=== PATIENT | male | born 1960 | race African-American/Black ===

== ENCOUNTER → 2017-03-05 | Outpatient (CLI) | payer OTHER ==
[~2017-03-05] MED LIST: CPR500HP PO; IBUP-1050 PO; LORA-741 PO; SYMIN/8045 INH
--- NOTE | 2017-03-05 09:59 | DIAGNOSTIC IMAGING REPORT ---
ABDOMEN ULTRASOUND FOR HERNIA CLINICAL HISTORY: S/P HERNIARAPHEY PAINS R INGUINAL AREA COMPARISON STUDY: Abdomen and pelvis CT 03/10/2014. FINDINGS: Real-time sonographic imaging of the right inguinal region was performed. There are few small inguinal lymph nodes which measure subcentimeter in short axis diameter. A right inguinal mesh is identified. No fluid collections or masses. No evidence for recurrent hernia. IMPRESSION: Right inguinal mesh is identified consistent with the patient's history of prior inguinal herniorrhaphy. No evidence for recurrent hernia. Electronically signed by: Parag Chan M.D. 03/05/2017 9:58 AM Dictated Date/Time: 03/05/2017 9:56 AM
== END | disposition home or self-care (01) ==
LOC: C.ULTR 09:14
PROVIDERS: ATTEND Family Medicine
DX: R10.30 Lower abdominal pain, unspecified (principal); Z98.890 Other specified postprocedural states

== ENCOUNTER 2017-06-03 03:52 | Emergency (ER) | payer OTHER ==
[~2017-06-03] VITALS: Ht 182.9 cm; Wt 73.7 kg
[~2017-06-03 03:52] MED LIST changes: -LORA-741 PO; -SYMIN/8045 INH
[2017-06-03 03:55] VITALS: TEMP 36.4; Ht 182.9 cm; Wt 73.7 kg
[2017-06-03 04:25] LABS: BASO % 0.7 %; BASO ABS # 0.03 K/uL (0-0.2); EOS % 6.5 %; EOS ABS # 0.27 K/uL (0-0.5); HEMATOCRIT 43.7 % (42-52); HEMOGLOBIN 14.7 g/dL (14.0-18.0); IG# 0.01 K/uL (0.00-0.02); LYMPH % 42.9 %; LYMPH ABS # 1.79 K/uL (1.2-3.4); MEAN CELL VOLUME 89.2 fL (80-100); MEAN CORPUSCULAR HGB CONC 33.6 g/dl (32-36); MEAN PLATELET VOLUME 9.2 fL (7.4-10.4); MONO % 6.2 %; MONO ABS # 0.26 K/uL (0.11-0.59); NEUT % 43.5 %; NEUT ABS # 1.81 K/uL (1.4-6.5); PLATELET COUNT 194 K/uL (130-400); RED CELL DISTRIBUTION WIDTH CV 13.1 % (11.5-14.5); RED CELL DISTRIBUTION WIDTH SD 42.3 fL (36.4-46.3); WHITE BLOOD COUNT 4.17 K/uL (4.8-10.8)
[2017-06-03 04:44] LABS: ALBUMIN 3.9 gm/dl (3.4-5.0); CALCIUM 8.9 mg/dl (8.5-10.1); CREATININE 1.22 mg/dl (0.60-1.40)
[2017-06-03 04:49] LABS: CKMB 7.2 ng/ml (0.5-3.6); TOTAL PROTEIN 7.5 gm/dl (6.4-8.2)
[2017-06-03 05:03] VITALS: O2SAT 98
--- NOTE | 2017-06-03 05:38 | EMERGENCY ROOM VISIT NOTE ---
History Report prepared by Ilia: Glenna Holland Under the Supervision of: Dr. Jarrell Norris M.D. First contact with patient: 03:56 Chief Complaint: CHEST PAIN Stated Complaint: CHEST PAIN LEFT SIDE,NUMBNESS IN ARM LAYING DOWN History of Present Illness The patient is a 56 year old male who presents to the Emergency Room with complaints of persistent chest pain episodes that began about a year and a half ago, noting the most recent episode occurred about an hour prior to arrival. He notes that his pain varies in intensity, but never completely goes away. The patient went to see his PCP for his symptoms, who suggested he might have a pinched nerve. He notes that tonight he decided to come to the Emergency Department because he was unable to sleep due to his discomfort being the worst he has ever experienced. The patient reports that he only experiences chest pain when he is laying down. He notes that he feels chest pressure when he inhales, has numbness in his left hand, and some neck pain. Pt denies LOC, headache, fevers, chills, diaphoresis, visual changes, tearing pain radiating to the back, personal history or family history of aneurysm or pulmonary embolism, uncontrolled hypertension, breathing difficulties, leg swelling, coagulation abnormalities, prolonged travel, recent surgery or immobilization, nausea, vomiting, abdominal pain, melena, hematochezia, urinary symptoms, weakness, lymphadenopathy, rash, or other complaints. Source of History: patient Onset: 5 days ago Position: chest Quality: other (chest pain) Timing: worsening Associated Symptoms: + neck pain (some), + numbness (numbness in his left hand) Note: Associated symptoms include: chest pressure when he inhales Review of Systems See HPI for pertinent positives and negatives. A total of ten systems were reviewed and were otherwise negative. Past Medical & Surgical Medical Problems: (1) Abdominal hernia (2) Asthma Family History Heart disease Hypertension Social History Smoking Status: Never Smoker Alcohol Use: none Drug Use: none Marital Status: Housing Status: lives with significant other Occupation Status: employed Current/Historical Medications Scheduled Budesonide/Formoterol Fumarate (Symbicort 80/4.5 Inhaler), 2 PUFFS INH BID Lorazepam (Ativan), 0.5 MG PO HS Allergies Coded Allergies: No Known Allergies (Unverified , NONE, 06/03/17) Physical Exam Vital Signs Date Time Temp Pulse Resp B/P (MAP) Pulse Ox O2 Delivery O2 Flow Rate FiO2 06/03/17 06:07 52 16 114/69 99 Room Air 06/03/17 05:03 98 Room Air 06/03/17 05:03 98 Room Air 06/03/17 05:01 65 18 106/69 99 Room Air 06/03/17 04:20 Room Air 06/03/17 04:12 63 06/03/17 03:55 36.4 65 18 132/88 99 Room Air Physical Exam GENERAL: Awake, alert, well-appearing, in no distress HENT: Normocephalic, atraumatic. Oropharynx unremarkable. EYES: Normal conjunctiva. Sclera non-icteric. NECK: Supple. No nuchal rigidity. FROM. No masses. RESPIRATORY: Clear to auscultation. No wheezes. CARDIAC: Mild left interior chest wall pain. Normal rate. Normal rhythm. No murmurs. No rubs. Extremities warm and well perfused. Pulses equal. No JVD. GI: Soft, non-distended. No tenderness to palpation. No rebound or guarding. No masses. RECTAL: Deferred. MUSCULOSKELETAL: Atraumatic. Chest examination reveals no tenderness. The back is symmetrical on inspection without obvious abnormality. There is no CVA tenderness to palpation. No joint edema. LOWER EXTREMITIES: Calves are equal size bilaterally and non-tender. No edema. No discoloration. NEURO: Normal sensorium. No sensory or motor deficits noted. SKIN: No rash or jaundice noted. Medical Decision & Procedures ER Provider Diagnostic Interpretation: Radiology results as stated below per my review and radiologist interpretation: Chest x-ray. Findings: A chest x-ray was performed and revealed no pneumothorax , effusion, infiltrate, pulmonary edema, free air under the diaphragm, or wide mediastinum. CT CHEST With Contrast: No evidence of pulmonary embolus. Dependent atelectasis. Otherwise, lungs are clear. No pleural effusion or pneumothorax. Heart and pericardium unremarkable. No significant adenopathy. Remote healed fracture of the posterior left ninth rib. Radiologist: Kelby Youssef M.D. Laboratory Results 06/03/17 04:20 Red Blood Count 4.90, Mean Corpuscular Volume 89.2, Mean Corpuscular Hemoglobin 30.0, Mean Corpuscular Hemoglobin Concent 33.6, Mean Platelet Volume 9.2, Neutrophils (%) (Auto) 43.5, Lymphocytes (%) (Auto) 42.9, Monocytes (%) (Auto) 6.2, Eosinophils (%) (Auto) 6.5, Basophils (%) (Auto) 0.7, Neutrophils # (Auto) 1.81, Lymphocytes # (Auto) 1.79, Monocytes # (Auto) 0.26, Eosinophils # (Auto) 0.27, Basophils # (Auto) 0.03 06/03/17 04:20 Test 06/03/17 04:20 06/03/17 04:31 06/03/17 06:27 White Blood Count 4.17 K/uL (4.8-10.8) Red Blood Count 4.90 M/uL (4.7-6.1) Hemoglobin 14.7 g/dL (14.0-18.0) Hematocrit 43.7 % (42-52) Mean Corpuscular Volume 89.2 fL (80-100) Mean Corpuscular Hemoglobin 30.0 pg (25-34) Mean Corpuscular Hemoglobin Concent 33.6 g/dl (32-36) Platelet Count 194 K/uL (130-400) Mean Platelet Volume 9.2 fL (7.4-10.4) Neutrophils (%) (Auto) 43.5 % Lymphocytes (%) (Auto) 42.9 % Monocytes (%) (Auto) 6.2 % Eosinophils (%) (Auto) 6.5 % Basophils (%) (Auto) 0.7 % Neutrophils # (Auto) 1.81 K/uL (1.4-6.5) Lymphocytes # (Auto) 1.79 K/uL (1.2-3.4) Monocytes # (Auto) 0.26 K/uL (0.11-0.59) Eosinophils # (Auto) 0.27 K/uL (0-0.5) Basophils # (Auto) 0.03 K/uL (0-0.2) RDW Standard Deviation 42.3 fL (36.4-46.3) RDW Coefficient of Variation 13.1 % (11.5-14.5) Immature Granulocyte % (Auto) 0.2 % Immature Granulocyte # (Auto) 0.01 K/uL (0.00-0.02) Anion Gap 8.0 mmol/L (3-11) Est Creatinine Clear Calc Drug Dose 70.5 ml/min Estimated GFR () 76.3 Estimated GFR (Non- 65.9 BUN/Creatinine Ratio 13.8 (10-20) Calcium Level 8.9 mg/dl (8.5-10.1) Total Bilirubin 0.5 mg/dl (0.2-1) Direct Bilirubin 0.2 mg/dl (0-0.2) Aspartate Amino Transf (AST/SGOT) 45 U/L (15-37) Alanine Aminotransferase (ALT/SGPT) 40 U/L (12-78) Alkaline Phosphatase 66 U/L (45-117) Total Creatine Kinase 714 U/L (39-308) Creatine Kinase MB 7.2 ng/ml (0.5-3.6) Creatine Kinase MB Ratio 1.0 (0-3.0) Total Protein 7.5 gm/dl (6.4-8.2) Albumin 3.9 gm/dl (3.4-5.0) Lipase 116 U/L (73-393) Bedside D-Dimer > 450 ng/mlFEU (0-450) Bedside Troponin I < 0.030 ng/ml (0-0.045) Laboratory results reviewed by me ECG Per My Interpretation Indication: chest pain Rate (beats per minute): 61 Rhythm: sinus rhythm Findings: PAC, no acute ischemic change, no ectopy ED Course 0352: The patient was evaluated in room B10. A complete history and physical exam was performed. 0620: I reevaluated the patient. Doing well. Repeat troponin performed. 0700: reevaluated patient. He is doing well. Discussed outpatient management and further workup. Discussed results and discharge instructions: he verbalized understanding and agreement. The patient is ready for discharge. Medical Decision Triage Nursing notes reviewed. The patient's presentation and history were concerning for chest pain. Etiologies such as musculoskeletal, cardiac ischemia, aortic dissection, pulmonary embolism, pneumonia, pneumothorax, infections, gastrointestinal, as well as others were entertained. The patient was evaluated. Clinically is doing well. He notes symptoms going on fairly consistently for over a year. He notes that it does not affect his ability to function during the day. 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 He has no exertional chest pain. He notes mostly it occurs at night when laying down. He has had orthopedic referral for his left arm numbness complaints. He also notes having a cardiology referral and stress test performed which was negative. Physical examination did reveal some left chest wall tenderness. He had an unremarkable CBC and chemistry panel. His troponin was negative. His d- dimer was mildly elevated. The patient does not have risk factor for PE by history. A CT scan was performed. His total CK was moderately elevated. A myositis is a possibility although the duration is somewhat unusual. Repeat troponin was negative. CT scan does not show any acute pathology. The exact etiology of his symptoms is not obvious. He does give a good history for a radiculopathy in the C8 dermatome. Musculoskeletal seems like a likely etiology for his chest symptoms. Further evaluation and management in the office will be necessary. By the evaluation outlined above other emergent etiologies such as those listed in the differential, as well as others, were deemed relatively unlikely. The patient was educated about the findings as listed above. All questions were answered and the patient was pleased with the treatment. Return instructions were outlined and the patient was discharged in stable condition. The patient was referred to his primary physician later today for follow-up for a recheck of the current condition. Medication Reconcilliation Current Medication List: was personally reviewed by me Blood Pressure Screening Patient's blood pressure: Normal blood pressure Blood pressure disposition: Did not require urgent referral Impression Primary Impression: Left sided chest pain Additional Impression: Elevated creatine phosphokinase level Scribe Attestation The scribe's documentation has been prepared under my direction and personally reviewed by me in its entirety. I confirm that the note above accurately reflects all work, treatment, procedures, and medical decision making performed by me. Departure Information Dispostion Home / Self-Care Referrals Jamison Randall M.D. (PCP) Forms Call Back Authorization, HOME CARE DOCUMENTATION FORM, IMPORTANT VISIT INFORMATION Patient Instructions [facility] Additional Instructions CHEST PAIN INSTRUCTIONS: Ibuprofen(Motrin, Advil) may be used for fever or pain. Use 600mg every six hours as needed. Take with food. Avoid using more than 2400mg in a 24 hour period. Do not use 2400mg per day for more than three consecutive days without physician direction. Prolonged inappropriate use can lead to stomach upset or ulcers. (AND/OR) Acetaminophen(Tylenol) may be used for fever or pain. Use 1000mg every six hours as needed. Avoid using more than 4000mg in a 24 hour period. Rest and drink plenty of fluids as tolerated. Continue current medications. Avoid strenuous activities and anything that worsens your pain. Resume normal activities once your symptoms resolve. Return to the ER immediately for worsening or persistent chest pain, abdominal pain, vomiting, fevers, chest pains, difficulty breathing, dark coloration of your urine, increased muscle pain, worsening of your condition, or as needed. Follow up with your primary physician in 2-3 days for a recheck of your current condition. Discuss your elevated muscle enzyme level. Repeat testing and evaluation should be performed. Also discussed your arm numbness. Problem Qualifiers
[2017-06-03 07:07] VITALS: BP 127/88; PULSE 59; O2SAT 100
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
--- NOTE | 2017-06-03 08:15 | EMERGENCY ROOM VISIT NOTE ---
ED Visit Note CT report was reviewed by our radiologist showed age-indeterminate PEs within the left segmental branch of the pulmonary artery. Patient was contacted by my charge nurse at 8:10 AM and he agreed to return to the ER. For further evaluation.
[2017-06-03] MEDS ORDERED: SYMIN/8045 INH (11:45)
[2017-06-03] MEDS ORDERED: LORA-741 PO (23:27)
[2017-06-04] MEDS ORDERED: XRL15 PO ×2 (12:07→12:13)
[2017-06-04] MEDS ORDERED: XRL20 PO (12:07)
== END 2017-06-03 07:09 | disposition home or self-care (01) ==
LOC: C.EDB 03:54
DX: R07.9 Chest pain, unspecified (principal); R74.8 Abnormal levels of other serum enzymes; I26.99 Other pulmonary embolism without acute cor pulmonale; R20.0 Anesthesia of skin; J45.909 Unspecified asthma, uncomplicated; Z82.49 Family history of ischemic heart disease and other diseases of the circulatory system

== ENCOUNTER 2017-06-03 08:21 | Observation (INO) | payer OTHER ==
[2017-06-03] VITALS (7 sets, daily range): BP systolic 107–134; BP diastolic 65–94; PULSE 56–62; TEMP 36.8–36.9; O2SAT 99–100; Ht 182.9 cm; Wt 73.9 kg
[~2017-06-03] VITALS: Ht 182.9 cm; Wt 73.9 kg
[2017-06-03 09:15] LABS: BASO % 0.3 %; BASO ABS # 0.01 K/uL (0-0.2); EOS ABS # 0.16 K/uL (0-0.5); HEMOGLOBIN 14.6 g/dL (14.0-18.0); IG# 0.01 K/uL (0.00-0.02); LYMPH % 37.4 %; LYMPH ABS # 1.49 K/uL (1.2-3.4); MEAN CELL VOLUME 87.6 fL (80-100); MEAN CORPUSCULAR HEMOGLOBIN 29.7 pg (25-34); MONO % 7.8 %; MONO ABS # 0.31 K/uL (0.11-0.59); NEUT % 50.2 %; PLATELET COUNT 186 K/uL (130-400); RED CELL DISTRIBUTION WIDTH CV 13.2 % (11.5-14.5); RED CELL DISTRIBUTION WIDTH SD 42.4 fL (36.4-46.3); WHITE BLOOD COUNT 3.98 K/uL (4.8-10.8)
[2017-06-03 09:28] LABS: PTT PATIENT 26.8 SECONDS (21.0-31.0)
[2017-06-03] MEDS ORDERED: SODIUM CHLORIDE 0.9% 1000ML 1,000 ML IV STA (09:41)
--- NOTE | 2017-06-03 10:37 | DIAGNOSTIC IMAGING REPORT ---
ULTRASOUND BILATERAL LOWER EXTREMITY VENOUS CLINICAL HISTORY: Pulmonary embolus. COMPARISON STUDY: No priors. TECHNIQUE: Real-time, grayscale, and color Doppler sonography of the deep veins of the right and left lower extremity was performed from the inguinal crease to the calf. Compression and augmentation were utilized. FINDINGS: There is no sonographic evidence of deep venous thrombosis identified in the right or left lower extremity. The common femoral, superficial femoral, and popliteal veins are patent and normally compressible bilaterally. The greater saphenous vein and the profunda femoris vein at the junction with the common femoral vein are clear in both legs. The visualized calf veins are patent bilaterally. IMPRESSION: There is no sonographic evidence of deep venous thrombosis identified in the right or left lower extremity. Electronically signed by: Nicola Gupta M.D. 06/03/2017 10:36 AM Dictated Date/Time: 06/03/2017 10:35 AM
[2017-06-03] MEDS ORDERED: ASPIRIN 81 MG CHEW PO STA (10:54)
[2017-06-03] MEDS ORDERED: ONDANSETRON INJ 2 MG/ML 2 ML VIAL IV PRN (11:30)
[2017-06-03] MEDS ORDERED: MAGNESIUM HYDROXIDE SUSP 30 ML UDC PO PRN (11:30)
[2017-06-03] MEDS ORDERED: ACETAMINOPHEN 325 MG TAB PO PRN (11:30)
[2017-06-03] MEDS ORDERED: NITROGLYCERIN 0.4 MG SL PER TAB CHARGE SL PRN (11:30)
[2017-06-03] MEDS ORDERED: HEPARIN 25000 UNIT/500 ML D5W ONE (11:36)
[2017-06-03] MEDS ORDERED: HEPARIN SOD (PORCINE) 1000 UNIT/ML 10 ML VIAL ONE (11:36)
[2017-06-03] MEDS ORDERED: SYMIN/8045 INH (11:45)
[2017-06-03] MEDS ORDERED: LORAZEPAM 0.5 MG TAB PO PRN (11:45)
--- NOTE | 2017-06-03 11:47 | History and Physical ---
History & Physical Date & Time of Service: Jun 03, 2017 at 11:31 Chief Complaint: Chest Pain Primary Care Physician: Jamison Randall M.D. History of Present Illness Source: patient 56 y/o M c/o chest pain. Pt has been having chest pain/pressure for about the last week. It is L sided and was initially more of a mild pressure until about 3-4 days ago when it became more intense pressure and he started to have more pain that moves into his L UE. He only has pain to the L UE when he lies down to sleep. It is keeping him up at night. He walks a lot at work and is active during his day and has no chest pain with this. He has no SOB. He does have some chest pressure with deep breathing. He also notes a numbness that stems from the L side of his neck and moves into his L 4th/5th digits, which is more constant and also recently started. This is different from the L UE pain he has been having. Pt came to the ED last night for evaluation due to the increase in his chest and UE pain. A CTA was done that was read as neg by [facility], however upon review today by [facility] radiology it was determined that there is a small L sided PE and pt was called to return to the ED. Pt states he had a more mild version of this chest pain about a year ago. He had a stress test at that time which was neg and his pain resolved. Of note, records show this stress was 06/2014 and was a stress ECHO that was neg. He feels fine otherwise. No palpitations, dizziness, lightheadedness. Pt denies fever, abd pain, n/v/c/d, LE pain or swelling. He has been able to go about his usual work and daily activities without other issues. Past Medical/Surgical History Medical Problems: (1) Abdominal hernia Status: Chronic (2) Asthma Status: Chronic Takes ativan HS for sleep Family History Family history was reviewed; no changes noted. Father had a triple bypass in his late 50s or early 60s Mother with HTN Social History Smoking Status: Never Smoker Alcohol Use: 3 beers/day, no issues if there is no alcohol consumption, no hx of alcohol withdrawal, recent antifungal use and had no alcohol x3 months without issue Drug Use: none Marital Status: Occupational Status: employed Multi-Drug Resistant Organisms History of MDRO: No Allergies Coded Allergies: No Known Allergies (Unverified , NONE, 06/03/17) Home Medications Scheduled Budesonide/Formoterol Fumarate (Symbicort 80/4.5 Inhaler), 2 PUFFS INH BID Lorazepam (Ativan), 0.5 MG PO HS Review of Systems Pertinent positives and negatives reviewed in HPI--all others negative Physical Exam Vital Signs Date Time Temp Pulse Resp B/P (MAP) Pulse Ox O2 Delivery O2 Flow Rate FiO2 06/03/17 11:00 52 126/83 100 Room Air 06/03/17 10:41 55 16 136/86 100 Room Air 06/03/17 09:06 60 16 139/88 99 Room Air 06/03/17 08:37 69 06/03/17 08:28 100 Room Air 06/03/17 08:25 36.3 66 20 150/91 100 Room Air General Appearance: WD/WN, no apparent distress Head: normocephalic, atraumatic Eyes: EOMI, sclerae normal Respiratory/Chest: normal breath sounds, no respiratory distress Cardiovascular: regular rate, rhythm, no edema, normal peripheral pulses Abdomen/GI: non tender, soft Extremities/Musculoskelatal: no calf tenderness, no pedal edema Neurologic/Psych: alert, normal mood/affect, oriented x 3 Skin: normal color, warm/dry Diagnostics Laboratory Results Results Past 24 Hours Test 06/03/17 08:50 06/03/17 09:00 06/03/17 11:22 Range/Units Bedside Prothrombin Time INR 1.0 0.9-1.1 White Blood Count 3.98 4.8-10.8 K/uL Red Blood Count 4.91 4.7-6.1 M/uL Hemoglobin 14.6 14.0-18.0 g/dL Hematocrit 43.0 42-52 % Mean Corpuscular Volume 87.6 80-100 fL Mean Corpuscular Hemoglobin 29.7 25-34 pg Mean Corpuscular Hemoglobin Concent 34.0 32-36 g/dl Platelet Count 186 130-400 K/uL Mean Platelet Volume 9.0 7.4-10.4 fL Neutrophils (%) (Auto) 50.2 % Lymphocytes (%) (Auto) 37.4 % Monocytes (%) (Auto) 7.8 % Eosinophils (%) (Auto) 4.0 % Basophils (%) (Auto) 0.3 % Neutrophils # (Auto) 2.00 1.4-6.5 K/uL Lymphocytes # (Auto) 1.49 1.2-3.4 K/uL Monocytes # (Auto) 0.31 0.11-0.59 K/uL Eosinophils # (Auto) 0.16 0-0.5 K/uL Basophils # (Auto) 0.01 0-0.2 K/uL RDW Standard Deviation 42.4 36.4-46.3 fL RDW Coefficient of Variation 13.2 11.5-14.5 % Immature Granulocyte % (Auto) 0.3 % Immature Granulocyte # (Auto) 0.01 0.00-0.02 K/uL Prothrombin Time 10.8 9.0-12.0 SECONDS Prothromb Time International Ratio 1.0 0.9-1.1 Activated Partial Thromboplast Time 26.8 21.0-31.0 SECONDS Partial Thromboplastin Ratio 1.0 Troponin I < 0.015 0-0.045 ng/ml Diagnostic Radiology CTA: small L PE LE US: neg for DVT b/l Normal EKG Impression Assessment and Plan 56 y/o M who was admitted for observation on 06/03 for chest pain. Chest pain: this is likely pleuritic stemming from the PE noted on CTA and the fact that it is only occurring in certain positions Pt with FH of CAD, will monitor overnight for possible ischemia related to PE Stress ECHO 2014 was WNL, will hold on repeating for now Trop neg x1, serial pending + ddimer in the setting of PE EKG WNL Hypercoag panel drawn prior to heparin Will start on heparin drip for now given possible need for further intervention, however pt would be a good candidate for xarelto depending on insurance coverage Lipid panel pending Asthma: stable, continue home meds Insomnia/anxiety: continue home meds LE UE numbness: if cardiac work-up is neg, likely related to disc herniation and will need further work-up as outpt with PCP Alcohol use: reports 3 beers per night and significant other does not dispute this, no hx of withdrawal with recent 3 month cessation due to antifungal use Monitor Other: Reg diet Heparin drip for DVT proph Level of Care Telemetry VTE Prophylaxis VTE Risk Assessment Done? Y/N: Yes Risk Level: Low
[2017-06-03] MEDS: HEPARIN 25,000 UNIT/500ML D5W 500 ML IV PRN ×2 (12:30→19:47)
[2017-06-03] MEDS ORDERED: IV FLUIDS COMPLETED PRN (14:00)
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
[2017-06-03 18:34] LABS: PTT PATIENT 76.9 SECONDS (21.0-31.0)
[2017-06-03] MEDS: BUDESONIDE/FORMOTEROL FUMARATE 80/4.5 60 PUFFS/INHALER INH SCH (20:39)
[2017-06-03] MEDS ORDERED: LORA-741 PO (23:27)
[2017-06-04 01:14] LABS: PTT PATIENT 63.4 SECONDS (21.0-31.0)
[2017-06-04 03:34] VITALS: BP 91/53; PULSE 55; TEMP 36.7; O2SAT 100
[2017-06-04 05:52] LABS: HEMOGLOBIN 13.5 g/dL (14.0-18.0); MEAN CELL VOLUME 87.5 fL (80-100); MEAN CORPUSCULAR HEMOGLOBIN 29.5 pg (25-34); MEAN CORPUSCULAR HGB CONC 33.8 g/dl (32-36); MEAN PLATELET VOLUME 8.9 fL (7.4-10.4); PLATELET COUNT 175 K/uL (130-400); RED CELL DISTRIBUTION WIDTH CV 13.4 % (11.5-14.5); RED CELL DISTRIBUTION WIDTH SD 42.6 fL (36.4-46.3); WHITE BLOOD COUNT 4.05 K/uL (4.8-10.8)
[2017-06-04 06:32] LABS: PTT PATIENT 64.8 SECONDS (21.0-31.0)
[2017-06-04 07:34] VITALS: BP 127/80; PULSE 59; TEMP 36.6; O2SAT 100
[2017-06-04 08:00] VITALS: O2SAT 100
[2017-06-04] MEDS: BUDESONIDE/FORMOTEROL FUMARATE 80/4.5 60 PUFFS/INHALER INH SCH (08:38)
[2017-06-04] MEDS ORDERED: RIVAROXABAN TAB 15 MG TAB PO SCH (09:00)
--- NOTE | 2017-06-04 10:56 | Medical Student: [facility] ---
Med Student History & Physical Date & Time of Service: Jun 04, 2017 at 10:38 Chief Complaint: Chest Pain Primary Care Physician: Jamison Randall M.D. History of Present Illness Source: patient, hospital records Mr. Colby is a 56-year-old male with a past history of asthma and left-sided C8 radiculopathy who presented to the ED initially on 06/02/17 complaining of left- sided chest pain. He was sent home after a seemingly negative workup but then was contacted by the ED when the report for his chest CTA revealed a left upper lobe PE of a segmental branch. His chest pain started a week ago. Mr. Colby characterized the pain primarily as a sensation of pressure and rated it a 4/10. He reports attempting use of antacids (Mylanta, Tums) with no improvement of symptoms. He states that pain is improved with positional changes (improved while supine, worse while lying on sides). Mr. Colby also reports improvement in his chest pain during the day and worsening at night. His chest pain wakes him up in the middle of the night. However, nothing has provided full relief of his chest pain. The pain is consistently present and improves during the day as he is working and worsens at night. Throughout this week-long episode of chest pain, Karlos denies any shortness of breath, either at rest or with exertion. He denies any history of prior DVT, PE, recent long trips, or immobilizations. He has never been a smoker. He reports a prior history of neck pain and bilateral upper extremity weakness, numbness, and pain for which he underwent an EMG in October 2015. The EMG report shows mild ulnar neuropathies bilaterally and left greater than right C8 radiculopathy. This AM, Mr. Colby reports sleeping well through the night with no interruption from his chest pain and presently complains of some of the same chest pain, but says it is much improved. He has a good appetite and has no problems with voiding. On ROS today, he denied any fever, chills, night sweats, dyspnea, and chest pain. Past Medical/Surgical History Medical Problems: (1) Abdominal hernia Status: Chronic (2) Elevated creatine phosphokinase level Status: Acute (3) Left sided chest pain Status: Acute (4) Pulmonary embolism Status: Acute Family History Father had a CABG x 3 in his early 60s. Mother has HTN. Denies a history of stroke, MS, PE, DVT in his family. Denies any hx of coagulopathies. Father: coronary artery disease Mother: HTN Social History Smoking Status: Never Smoker Alcohol Use: 3 beers/day, no issues if there is no alcohol consumption, no hx of alcohol withdrawal, recent antifungal use and had no alcohol x3 months without issue Drug Use: none Marital Status: Occupational Status: employed (is self-employed and works in construction) Allergies Coded Allergies: No Known Allergies (Unverified , NONE, 06/03/17) Medications Budesonide/Formoterol Fumarate (Symbicort 80/4.5 Inhaler), 2 PUFFS INH BID Lorazepam (Ativan), 0.5 MG PO HS Rivaroxaban (Xarelto), 20 MG PO DAILY Rivaroxaban (Xarelto), 15 MG PO BID Review of Systems Constitutional: No fever, No chills, No sweats Respiratory: No cough, No wheezing, No shortness of breath, No dyspnea on exertion, No dyspnea at rest, No hemoptysis Cardiovascular: No chest pain Abdomen: No pain, No nausea, No vomiting, No diarrhea, No constipation Physical Exam Vital Signs (24 Hours) Date Time Temp Pulse Resp B/P (MAP) Pulse Ox O2 Delivery O2 Flow Rate FiO2 06/04/17 08:00 100 Room Air 06/04/17 07:34 36.6 59 20 127/80 (96) 100 Room Air 06/04/17 04:00 Room Air 06/04/17 03:34 36.7 55 16 91/53 (66) 100 Room Air 06/04/17 00:00 Room Air 06/03/17 23:50 36.8 59 18 107/65 (79) 99 Room Air 06/03/17 20:10 99 Room Air 06/03/17 19:01 36.9 62 15 119/80 (93) 99 Room Air 06/03/17 16:07 36.8 56 16 117/71 (86) 100 Room Air 06/03/17 16:00 99 Room Air 06/03/17 13:30 36.8 57 18 134/94 (107) 99 Room Air 06/03/17 12:58 57 14 113/82 100 06/03/17 12:32 63 16 128/92 99 Room Air 06/03/17 12:26 57 06/03/17 12:06 100 Room Air 06/03/17 11:00 52 126/83 100 Room Air 06/03/17 10:41 55 16 136/86 100 Room Air General Appearance: WD/WN, no apparent distress Head: normocephalic, atraumatic Eyes: normal inspection Neck: supple, no adenopathy, no JVD Respiratory/Chest: chest non-tender, lungs clear, normal breath sounds, no respiratory distress, no accessory muscle use Cardiovascular: regular rate, rhythm, no edema, no gallop, no JVD, no murmur Abdomen/GI: normal bowel sounds, non tender, soft Extremities/Musculoskelatal: normal inspection, no calf tenderness, no pedal edema, non-tender Neurologic/Psych: alert, normal mood/affect, normal reflexes, oriented x 3 Skin: normal color, warm/dry Diagnostics Laboratory Results Results Past 24 Hours Test 06/03/17 12:15 06/03/17 18:03 06/03/17 23:19 06/04/17 00:28 Range/Units Fibrinogen 221 184-400 mg/dl Activated Partial Thromboplast Time 76.9 63.4 21.0-31.0 SECONDS Partial Thromboplastin Ratio 3.0 2.4 Troponin I < 0.015 < 0.015 0-0.045 ng/ml Test 06/04/17 05:28 Range/Units White Blood Count 4.05 4.8-10.8 K/uL Red Blood Count 4.57 4.7-6.1 M/uL Hemoglobin 13.5 14.0-18.0 g/dL Hematocrit 40.0 42-52 % Mean Corpuscular Volume 87.5 80-100 fL Mean Corpuscular Hemoglobin 29.5 25-34 pg Mean Corpuscular Hemoglobin Concent 33.8 32-36 g/dl RDW Standard Deviation 42.6 36.4-46.3 fL RDW Coefficient of Variation 13.4 11.5-14.5 % Platelet Count 175 130-400 K/uL Mean Platelet Volume 8.9 7.4-10.4 fL Activated Partial Thromboplast Time 64.8 21.0-31.0 SECONDS Partial Thromboplastin Ratio 2.5 Triglycerides Level 57 0-150 mg/dl Cholesterol Level 173 0-200 mg/dl HDL Cholesterol 95 mg/dl LDL Cholesterol, Calculated 67 mg/dl VLDL Cholesterol, Calculated 11 mg/dl Cholesterol/HDL Ratio 1.8 Diagnostic Radiology Chest CTA revealed a trace and age-indeterminant pulmonary embolus in a segmental branch in the left upper lobe. CXR normal Normal EKG Impression Assessment and Plan Les is a 56 year old male with a prior history of asthma who presented to the ED on 06/02/17 with a week-long history of worsening chest pain and was sent home the same day after an apparently negative workup. He was asked to return for further evaluation when his chest CTA showed a pulmonary embolus. Pulmonary embolus -based on history of chest pain, CT findings, and elevated D-dimer, Mr. Colby's symptoms were from the PE found in his left lung -initiate anticoagulation for the next six months. 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
[2017-06-04 11:37] VITALS: BP 107/71; PULSE 67; TEMP 36.8; O2SAT 99
[2017-06-04] MEDS ORDERED: XRL15 PO ×2 (12:07→12:13)
[2017-06-04] MEDS ORDERED: XRL20 PO (12:07)
--- NOTE | 2017-06-04 12:12 | Discharge Instructions ---
Discharge Instructions Date of Service Jun 04, 2017. Admission Reason for Admission: Left sided pulmonary embolism Discharge Discharge Diagnosis / Problem: (1) Pulmonary embolism VTE Date & Time Date of VTE Diagnosis: Jun 03, 2017 Time of VTE Diagnosis: 07:11 Discharge Goals Goal(s): Improve function, Improve disease control Activity Recommendations Activity Limitations: resume your previous activity . Instructions / Follow-Up Instructions / Follow-Up Medications: - XARELTO: anticoagulation for pulmonary embolism, take 15mg twice a day for 20 more days and then 20mg daily Pulmonary Embolism: diagnosed on CT of the chest and your d dimer was also elevated to suggest a clot venous doppler of the legs was negative for DVT hypercoagulable lab work was drawn here in the hospital but will take days to come back, Dr. Randall will have those results next week recommend taking Xarelto for 6 months to treat the clot be careful at work as you will be more prone to bleeding and bruising if you injure yourself FOLLOW UP - call for appointment with Dr. Randall next week Medication Instructions: Your condition is typically treated with an anticoagulant. Anticoagulants will thin your blood to help prevent new clots. * You should take her medication exactly as directed. * Never skip a dose. * Never take a double dose. If you miss a dose, take it as soon as you remember. Call your Primary Care doctor if you experience any of the following: * Swelling or Pain in your leg * Sudden, continuous pain deep in a muscle * Pain that worsens when you are active or when you stand still for a long time * Chest Pain * Sudden Shortness of Breath * Rapid or pounding heart beat * Fainting * Dizziness * Cough with blood or bloody sputum * Sweating more than normal * Bruises * Heavy or uncontrolled bleeding * Blood in your urine, stool or vomit * Black or tarry stools Caring for Your Self at Home: * Avoid sitting, standing or lying down for long periods without moving your legs and feet * When traveling by car, stop to get out and move around at least once every 3 hours * On long airplane, train or bus rides, get up and move around when possible * If you can't get up, wiggle your toes and tighten your calves to keep your blood moving Follow Up: It is important for you to keep your follow up appointments with your medical provider. Current Hospital Diet Patient's current hospital diet: Regular Diet Discharge Diet Recommended Diet: Regular Diet Pending Studies Studies pending at discharge: yes List of pending studies: hypercoagulable lab work Laboratory Results Lipid Panel Test 06/04/17 05:28 Range/Units Triglycerides Level 57 0-150 mg/dl Cholesterol Level 173 0-200 mg/dl HDL Cholesterol 95 mg/dl Cholesterol/HDL Ratio 1.8 LDL Cholesterol, Calculated 67 mg/dl Medical Emergencies . Who to Call and When: Medical Emergencies: If at any time you feel your situation is an emergency, please call 911 immediately. . Non-Emergent Contact Non-Emergency issues call your: Primary Care Provider Call Non-Emergent contact if: you have any medication questions . . "Provider Documentation" section prepared by Caden Landa. . VTE Core Measure Inpt VTE Proph given/why not?: Other Anticoagulation (Xarelto) [place] Drug Monitoring Program Search Results: no issues identified
[2017-06-04 12:40] VITALS: BP 107/71; PULSE 67; TEMP 36.8; O2SAT 99
--- NOTE | 2017-06-05 07:52 | Discharge Summary ---
Discharge Summary Date of Service Jun 04, 2017. Discharge Summary Admission Date: Jun 03, 2017 at 11:31 Discharge Date: Jun 04, 2017 Discharge Disposition: Home Principal Diagnosis: Left sided PE Problems/Secondary Diagnoses: Chest pain Procedures: none Consultations: none Medication Reconciliation New Medications: Rivaroxaban (Xarelto) 20 Mg Tab 20 MG PO DAILY for 30 Days, #30 TABS 5 Refills Rivaroxaban (Xarelto) 15 Mg Tab 15 MG PO BID for 21 Days, #42 TAB 0 Refills Continued Medications: Budesonide/Formoterol Fumarate (Symbicort 80/4.5 Inhaler) Aero 2 PUFFS INH BID Lorazepam (Ativan) 0.5 Mg Tab 0.5 MG PO HS Discharge Exam Patient doing well, chest pain resolving, able to take a deep breath, never had dyspnea. Discussed plan for discharge with [facility], co-pay only $3. Review of Systems: Constitutional: No fever, No chills, No sweats, No weight loss, No weakness , No fatigue, No problem reported Eyes: No worsening of vision, No eye pain, No redness, No discharge, No diplopia, No problem reported ENT: No hearing loss, No unusual epistaxis, No nasal symptoms, No sore throat, No tinnitus, No dental problems, No trouble swallowing, No problem reported Respiratory: No cough, No sputum, No wheezing, No shortness of breath, No dyspnea on exertion, No dyspnea at rest, No hemoptysis, No problem reported Cardiovascular: + chest pain (left sided, improving), No orthopnea, No PND, No edema, No claudication, No palpitations, No problem reported Abdomen: No pain, No nausea, No vomiting, No diarrhea, No constipation, No GI bleeding, No problem reported Musculoskeletal: No joint pain, No muscle pain, No swelling, No calf pain, No problem reported Genitourinary - Male: No hematuria, No dysuria, No urinary frequency, No urinary urgency Neurologic: No memory loss, No paralysis, No weakness, No numbness/tingling , No vertigo, No balance problems, No problem reported Psychiatric: No depression symptoms, No anhedonism, No anxiety, No insomnia , No substance abuse, No problem reported Endocrine: No fatigue, No excessive thirst, No excessive urination, No problem reported Hematologic / Lymphatic: No abnormal bleeding/bruising, No clotting problems , No swollen lymph nodes, No night sweats, No problem reported Integumentary: No rash, No itch, No new/changing skin lesions, No color change, No bleeding, No problem reported Physical Exam: General Appearance: WD/WN, no apparent distress Eyes: normal inspection, EOMI, sclerae normal ENT: normal ENT inspection, hearing grossly normal, pharynx normal Neck: supple, no adenopathy, no JVD, trachea midline Respiratory/Chest: chest non-tender, lungs clear, normal breath sounds, no respiratory distress, no accessory muscle use Cardiovascular: regular rate, rhythm, no edema, no gallop, no JVD, no murmur , normal peripheral pulses Abdomen / GI: normal bowel sounds, non tender, soft, no organomegaly Extremities: normal inspection, no calf tenderness, normal capillary refill , no pedal edema, normal range of motion, pelvis stable 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 - Left sided PE, segmental branch, unprovoked chest pain improving, breathing well on room air, vitals stable hypercoagulable panel sent out but still pending initially treated with heparin drip, converted to Xarelto will give 15mg BID x 21 days and then 20mg daily doppler negative for DVT bilaterally - Chest pain: due to PE troponin negative x 3 sets, he had a negative stress test in the past several years pain is on left side and PE is on the left side Total Time Spent: Greater than 30 minutes This includes examination of the patient, discharge planning, medication reconciliation, and communication with other providers. Discharge Instructions Please refer to the electronic Patient Visit Report (Discharge Instructions) for additional information. Follow-Up Dr. Randall in one week, needs to follow up on hypercoagulable panel Additional Copies To Jamison Randall M.D.
== END 2017-06-04 12:55 | disposition home or self-care (01) ==
LOC: C.EDB 08:22 → C.MED 11:31 → ENRESERV 12:06
PROVIDERS: ADMIT Family Medicine; ATTEND Internal Medicine
DX: I26.99 Other pulmonary embolism without acute cor pulmonale (principal); J45.909 Unspecified asthma, uncomplicated; Z82.49 Family history of ischemic heart disease and other diseases of the circulatory system; Z79.899 Other long term (current) drug therapy

== ENCOUNTER → 2017-06-17 | Outpatient (CLI) | payer OTHER ==
[~2017-06-17] MED LIST changes: -CPR500HP PO; -IBUP-1050 PO; +LORA-741 PO; +SYMIN/8045 INH; +XRL15 PO; +XRL20 PO
--- NOTE | 2017-06-17 15:00 | ECHOCARDIOGRAM REPORT ---
*NOTICE TO RECEIVING DEMOCRAT AGENCY This information is strictly Confidential and protected under [place] law. [place] law prohibits you from making any further disclosure of this information unless further disclosure is expressly permitted by the written consent of the person to whom it pertains or is authorized by law. A general authorization for the release of medical or other information is not sufficient for this purpose. Hospital accepts no responsibility if the information is made available to any other person, INCLUDING THE PATIENT. Interpretation Summary * Name: BJ CUELLAR Study Date: 06/17/2017 12:56 PM BP: 128/96 mmHg * Patient Location: [facility] HR: 72 * : 1960 (M/d/yyyy) Gender: Male Height: 72 in * Age: 56 yrs Ethnicity: AA Weight: 165 lb * Ordering Physician: Jamison Randall * Referring Physician: Jamison Randall * Performed By: Robert Cuteo RCS * * Reason For Study: Cardiomegaly * BSA: 2.0 m2 * Normal biventricular systolic function. * Grade I left ventricular diastolic dysfunction. * Normal chamber dimensions. * Trace mitral, aortic, pulmonic, and tricuspid regurgitation. Procedure Details * A complete two-dimensional transthoracic echocardiogram was performed (2D, M-mode, Doppler and color flow Doppler). Left Ventricle * The left ventricle is normal in size. * There is normal left ventricular wall thickness. * Ejection Fraction = 60-65%. * A full diastolic examination was done with clinical findings of Class I diastolic dysfunction. * The left ventricular wall motion is normal. Right Ventricle * The right ventricle is normal in size and function. * The right ventricular systolic function is normal as assessed by tricuspid annular plane systolic excursion (TAPSE) (normal >1.5 cm). Atria * The left atrial size is normal. * Right atrial size is normal. * No ASD detected; PFO is not assessed. Mitral Valve * The mitral valve is normal. * There is no mitral valve stenosis. * There is trace mitral regurgitation. Tricuspid Valve * The tricuspid valve is normal. * There is no tricuspid stenosis. * There is trace tricuspid regurgitation. * Right ventricular systolic pressure is normal. Aortic Valve * The aortic valve is trileaflet. * The aortic valve opens well. * Aortic stenosis is absent. * Trace aortic regurgitation. Pulmonic Valve * The pulmonic valve leaflets are thin and pliable; valve motion is normal. * There is no pulmonic valvular stenosis. * Trace pulmonic valvular regurgitation. Great Vessels * The aortic root is normal size. Pericardium/Pleural * There is no pericardial effusion. Great Vessels * Normal inferior vena cava diameter and respiratory variation suggests normal central venous pressure. MMode 2D Measurements and Calculations IVSd 0.93 cm IVSs 1.3 cm LVIDd 4.8 cm LVIDs 2.6 cm LVPWd 10 cm LVPWs 1.3 cm IVS/LVPW 0.93 FS 46.0 % EDV(Teich) 107.8 ml ESV(Teich) 24.5 ml EF(Teich) 77.3 % EDV(cubed) 110.9 ml ESV(cubed) 17.5 ml EF(cubed) 84.3 % % IVS thick 43.4 % % LVPW thick 26.0 % LV mass(C)d 161.7 grams LV mass(C)dI 82.4 grams/m\S\2 LV mass(C)s 101.7 grams LV mass(C)sI 51.8 grams/m\S\2 CO(Teich) 6.0 l/min CI(Teich) 3.1 l/min/m\S\2 SV(Teich) 83.3 ml SI(Teich) 42.4 ml/m\S\2 CO(cubed) 6.7 l/min CI(cubed) 3.4 l/min/m\S\2 SV(cubed) 93.5 ml SI(cubed) 47.6 ml/m\S\2 Ao root diam 3.7 cm Ao root area 10.7 cm\S\2 ACS 1.4 cm LA dimension 3.0 cm asc Aorta Diam 3.1 cm LA/Ao 0.82 LVAd ap4 36.8 cm\S\2 LVLd ap4 9.6 cm EDV(MOD-sp4) 119.0 ml LVAs ap4 18.0 cm\S\2 LVLs ap4 7.1 cm ESV(MOD-sp4) 40.7 ml EF(MOD-sp4) 65.8 % LVAd ap2 41.6 cm\S\2 LVLd ap2 9.5 cm EDV(MOD-sp2) 153.0 ml LVAs ap2 23.9 cm\S\2 LVLs ap2 7.8 cm ESV(MOD-sp2) 70.7 ml EF(MOD-sp2) 53.8 % CO(MOD-sp4) 5.6 l/min CI(MOD-sp4) 2.9 l/min/m\S\2 SV(MOD-sp4) 78.3 ml SI(MOD-sp4) 39.9 ml/m\S\2 CO(MOD-sp2) 5.9 l/min CI(MOD-sp2) 3.0 l/min/m\S\2 SV(MOD-sp2) 82.3 ml SI(MOD-sp2) 41.9 ml/m\S\2 Doppler Measurements and Calculations MV E max joleen 45.9 cm/sec MV A max joleen 51.4 cm/sec MV E/A 0.89 MV P1/2t max joleen 50.0 cm/sec MV P1/2t 111.4 msec MVA(P1/2t) 2.0 cm\S\2 MV dec slope 131.4 cm/sec\S\2 MV dec time 0.33 sec Ao V2 max 101.0 cm/sec Ao max PG 4.1 mmHg Ao max PG (full) 0.74 mmHg AI max joleen 343.9 cm/sec AI max PG 47.3 mmHg AI dec slope 197.7 cm/sec\S\2 AI P1/2t 509.5 msec LV V1 max PG 3.3 mmHg LV V1 max 91.3 cm/sec PA V2 max 80.4 cm/sec PA max PG 2.6 mmHg PI max joleen 166.7 cm/sec PI max PG 11.1 mmHg PI dec slope 157.5 cm/sec\S\2 PI P1/2t 309.9 msec TR max joleen 205.9 cm/sec
== END | disposition home or self-care (01) ==
LOC: C.CPL 12:41
PROVIDERS: ATTEND Family Medicine
DX: I51.7 Cardiomegaly (principal)